=== PATIENT | female | born 1955 | race Hispanic/Latino ===

== ENCOUNTER 2020-02-23 06:21 | Observation (INO) | payer MEDICAID, MEDICARE, OTHER ==
[2020-02-23] MEDS ORDERED: ASPIRIN EC 325 MG TAB PO ONE (07:24)
[2020-02-23 07:49] LABS: Basophils % (Auto) 0.6 % (0.0-1.8); Eosinophils # (Auto) 0.4 K/mm3 (0.0-0.4); Eosinophils % (Auto) 5.7 % (0.0-4.3); Hematocrit 36.3 % (30.3-42.9); Hemoglobin 12.6 gm/dl (10.1-14.3); Lymphocytes # (Auto) 1.9 K/mm3 (1.2-5.4); Mean Corpuscular HGB Conc 35 % (30-34); Mean Corpuscular Volume 90 fl (79-97); Monocytes # (Auto) 0.7 K/mm3 (0.0-0.8); Monocytes % (Auto) 9.5 % (0.0-7.3); Platelet Count 166 K/mm3 (140-440); Red Blood Count 4.03 M/mm3 (3.65-5.03); Red Cell Distribution Width 13.4 % (13.2-15.2)
[2020-02-23 07:59] LABS: INR 0.88 (0.87-1.13); Partial Thromboplastin Time 24.9 Sec. (24.2-36.6)
[2020-02-23] MEDS ORDERED: SODIUM CHLORIDE 0.9% 500 ML 500 ML IV SCH (08:00)
[2020-02-23 08:01] LABS: BUN/Creatinine Ratio 28; Blood Urea Nitrogen 25 mg/dL (7-17); Hemolysis Index 27
[2020-02-23] MEDS ORDERED: HEPARIN 10,000 UNITS/10 ML VIAL ONE (09:11)
[2020-02-23] MEDS ORDERED: NITROGLYCERIN SYRINGE 3 ML ONE (09:11)
[2020-02-23] MEDS ORDERED: LIDOCAINE (2%) 20 MG/1 ML VIAL 20 ML MDV INFILTRATI ONE (09:11)
[2020-02-23] MEDS ORDERED: HEPARIN/NS 5000 UNIT/500ML 1,000 ML IR ONE (09:11)
[2020-02-23] MEDS ORDERED: VERAPAMIL 5 MG/2 ML INJ ONE (09:11)
[2020-02-23] MEDS ORDERED: fentaNYL 100 MCG/2 ML INJ ONE (09:19)
[2020-02-23] MEDS ORDERED: MIDAZOLAM 2 MG/2 ML INJ ONE (09:19)
[2020-02-23] MEDS ORDERED: DEXTROSE 50% IN WATER (25GM) 50 ML SYRINGE IV PRN (10:20)
--- NOTE | 2020-02-23 10:25 | Short Stay Summary ---
Short Stay Documentation Date of service: 02/23/20 - History H&P: obtained from office - Allergies and Medications Current Medications: Allergies No Known Allergies Allergy (Unverified 02/22/14 17:12) Home Medications Medication Instructions Recorded Confirmed Last Taken Type Aspirin EC [Ecotrin] 325 mg PO QDAY #30 tablet 03/14/14 02/23/20 02/23/20 Rx 1 tab Ciprofloxacin HCl [Cipro] 500 mg PO BID #11 tablet 03/14/14 02/23/20 Unknown Rx Clopidogrel [Plavix] 75 mg PO QDAY #30 tablet 03/14/14 02/23/20 Unknown Rx Furosemide [Lasix] 40 mg PO BID #60 tablet 03/14/14 02/23/20 02/22/20 Rx 1 tab Potassium Chloride [K-Dur] 10 meq PO QDAY #30 tablet 03/14/14 02/23/20 Unknown Rx Spironolactone [Aldactone] 25 mg PO QDAY #30 tablet 03/14/14 02/23/20 Unknown Rx carvediloL [Coreg] 3.125 mg PO BID #60 tablet 03/14/14 02/23/20 02/22/20 Rx 1 tab glipiZIDE [Glucotrol] 5 mg PO BIDDIAB #60 tablet 03/14/14 02/23/20 02/22/20 Rx 1 tab lisinopriL [Zestril TAB] 5 mg PO QDAY #30 tablet 03/14/14 02/23/20 02/22/20 Rx 1 tab metFORMIN [Glucophage] 500 mg PO BIDDIAB #60 tablet 03/14/14 02/23/20 02/22/20 Rx 1 tab Active Medications Hydrocodone Bitart/Acetaminophen (Derby 5/325) 1 each PO Q6H PRN PRN Reason: Pain, Moderate (4-6) Aspirin (Ecotrin) 325 mg PO QDAY [facility] Carvedilol (Coreg) 6.25 mg PO BID [facility] Furosemide (Lasix) 40 mg PO QDAY [facility] Glipizide (Glucotrol) 5 mg PO BIDDIAB [facility] Sodium Chloride (Nacl 0.9% 500 Ml) 500 mls @ 50 mls/hr IV DIRECT [facility] Stop: 02/23/20 17:59 Last Admin: 02/23/20 08:28 Dose: 50 mls/hr Documented by: Lisinopril (Zestril) 5 mg PO QDAY [facility] Potassium Chloride (K-Dur) 10 meq PO QDAY [facility] - Brief post op/procedure progress note Date of procedure: 02/23/20 Pre-op diagnosis: abnl stress test Post-op diagnosis: same Procedure: see report Anesthesia: local Estimated blood loss: none Pathology: none - Disposition Condition at discharge: Good Disposition: [id number] TO HOME OR SELFCARE - Discharge Diagnoses (1) Hyperlipemia, mixed Status: Chronic (2) Hypertension Status: Chronic Qualifiers: Hypertension type: essential hypertension Qualified Code(s): I10 - Essential (primary) hypertension (3) Cardiomyopathy Status: Chronic Qualifiers: Cardiomyopathy type: ischemic Qualified Code(s): I25.5 - Ischemic card iomyopathy (4) Hyperglycemia Status: Chronic (5) Ischemic cardiomyopathy Status: Chronic (6) S/P percutaneous transluminal coronary angioplasty Status: Chronic (7) S/P placement of cardiac pacemaker Status: Chronic (8) Diabetes Status: Chronic (9) Obstructive sleep apnea Status: Suspected Short Stay Discharge Plan Activity: advance as tolerated Diet: low fat, low cholesterol, low salt, diabetic Wound: keep clean and dry Special Instructions: hold Metformin (for two days) Follow up with: PRIMARY CAREMD [Primary Care Provider] - 7 Days
--- NOTE | 2020-02-23 10:32 | Cardiac Catherization Report ---
PROCEDURE: Left heart catheterization. CLINICAL INFORMATION: This is a 65-year-old female with history of myocardial infarction in 2014 requiring permanent pacemaker placement, who had PCI of the RCA with 2 [id number] 3.5 Integrity stents. Has hypertension and diabetes. Diabetes is uncontrolled. Her stress test shows moderate ischemia in the apical lateral region, so here for left heart catheterization. The patient was done with moderate sedation started at 9:40 and finished at 9:55, which is 15 minutes of moderate sedation. DESCRIPTION OF PROCEDURE: Procedure was performed via the right radial artery, sterile technique, local anesthesia, 6-Turkish radial sheath inserted. Left system engaged with a JL3.5 catheter. Left main is a large caliber vessel, patent, bifurcates into medium caliber LAD, mild luminal irregularities in mid portion. Mid is diffuse disease, calcified 30%. Distal is patent. Diagonal 1 is a medium caliber vessel, patent with mild luminal irregularities. Diagonal 2 is a small caliber vessel, has a proximal ostial 80% lesion. Circumflex is small to medium caliber vessel patent with diffuse mild luminal irregularities. RCA engaged with JR4, is a large dominant vessel. Proximal mid stents are patent with diffuse smooth in-stent restenosis 20-30%. Distal is patent, has a long PDA and PLV that covers the whole lateral wall that are patent with mild luminal irregularities. LV gram done in [facility]ISSY and CEBALLOS shows moderate LV dysfunction, inferior wall hypokinesis, EF 35%, LVEDP of 18 mmHg, LV is 133. Aortic is 133/66. No gradient across the aortic valve on pullback. 5-Turkish catheters all taken over a guidewire. 6-Turkish radial sheath was discontinued. Radial dressing applied. No hematoma, no bleeding. SUMMARY: Left main patent. LAD, medium caliber, proximal patent, mid diffuse calcified 30%. Diagonal 1 medium caliber and patent, mild luminal irregularities. Diagonal 2 small caliber proximal ostial 80%. Circumflex small to medium caliber, patent with mild luminal irregularities. RCA large dominant vessel, proximal mid stents patent with smooth in-stent restenosis 20%, distal patent. PDA, PLV are long, long branches that are patent, covers inferior lateral wall. There is EF is approximately 35-40% with inferior wall hypokinesis, treat medically. JOB# [id number] SHALONDA/CANDY
[2020-02-23] MEDS ORDERED: HYDROcodone/ACETAMINOPHEN 5-325 MG TAB PO PRN (11:00)
[2020-02-23] MEDS ORDERED: HYDROcodone/ACETAMINOPHEN 5-325 MG TAB ONE (11:05)
[2020-02-23] MEDS ORDERED: INSULIN LISPRO 100 UNIT/ML VIAL 3 mL SUB-Q SCH (11:30)
[2020-02-23] MEDS ORDERED: INSULIN LISPRO 100 UNIT/ML SUB-Q ONE (15:55)
[2020-02-23] MEDS ORDERED: INSULIN LISPRO 100 UNIT/ML VIAL 3 mL SUB-Q ONE (15:55)
[2020-02-23 16:02] VITALS: BP 116/64
[2020-02-23] MEDS ORDERED: glipiZIDE 5 MG TAB PO SCH (17:00)
[2020-02-23] MEDS ORDERED: carvediloL 3.125 MG TAB PO SCH (22:00)
[2020-02-24] MEDS ORDERED: ASPIRIN EC 325 MG TAB PO SCH (10:00)
[2020-02-24] MEDS ORDERED: POTASSIUM CHLORIDE ER 10 MEQ TAB PO SCH (10:00)
[2020-02-24] MEDS ORDERED: FUROSEMIDE 40 MG TAB PO SCH (10:00)
[2020-02-24] MEDS ORDERED: LISINOPRIL 5 MG TAB PO SCH (10:00)
== END 2020-02-23 18:54 | disposition home or self-care (01) ==
LOC: CATHLABREC 06:21 → 4A 10:12
PROVIDERS: ADMIT Internal Medicine; ATTEND Internal Medicine
DX: I25.5 Ischemic cardiomyopathy (principal); I11.0 Hypertensive heart disease with heart failure; I50.9 Heart failure, unspecified; I25.10 Atherosclerotic heart disease of native coronary artery without angina pectoris; N28.9 Disorder of kidney and ureter, unspecified; E11.65 Type 2 diabetes mellitus with hyperglycemia; I25.2 Old myocardial infarction; E78.2 Mixed hyperlipidemia; G47.33 Obstructive sleep apnea (adult) (pediatric); R94.39 Abnormal result of other cardiovascular function study; R00.0 Tachycardia, unspecified; Z95.0 Presence of cardiac pacemaker; Z79.82 Long term (current) use of aspirin; Z79.84 Long term (current) use of oral hypoglycemic drugs
CPT/HCPCS: 36415; 80048; 82962; 85025; 85610; 85730; 93005; 93458; C1894; G0378; J1644; J2250; J3010; J7040; J1815; Q9967